=== PATIENT | male | born 1955 | race Caucasian/White ===

== ENCOUNTER 2020-09-03 15:51 | Emergency (ER) | payer BC, MEDICARE ==
[2020-09-03] MEDS ORDERED: SODIUM CHLORIDE 0.9% (FLUSH) 10 ML SYG IV PRN (16:03)
[2020-09-03 16:15] VITALS: TEMP 97.7
[2020-09-03] MEDS ORDERED: TETANUS,DIPHTHERIA,PERTUSSIS 1 EA SYG IM ONE (16:55)
--- NOTE | 2020-09-03 16:58 | CT ---
EXAM DESCRIPTION: Abdomen/Pelvis w/Contrast 09/03/2020 4:53 PM JOB DEVELOPER CLINICAL HISTORY: 64 years, Male, fall from ladder with LOC, chest/belly/back pain COMPARISON: None PROCEDURE: Contrast-enhanced images of the abdomen and pelvis were performed utilizing 2 mm slice thickness at 2 mm interval reconstruction from the lung bases to the ischial tuberosities after the administration of IV contrast. In addition multiplanar reformats in the coronal and sagittal plane were obtained and reviewed. An individualized dose optimization technique, Automated Exposure Control, was utilized for the performed procedure. FINDINGS: Evaluation of the chest will be given in separate report. The liver, gallbladder, pancreas, spleen and adrenal glands demonstrate to be unremarkable, no focal lesions are noted. There is no evidence for hepatic and/or splenic laceration. The kidneys demonstrate normal uptake of contrast media. No hydronephrosis and/or stones were identified. There is no evidence for renal injury Grossly the unopacified stomach, small bowel and large bowel demonstrate to be within normal limits. Fecal residue and underdistention within the large bowel limits the evaluation. There is no evidence for bowel dilatation and/or free air. The appendix is normal. The urinary bladder demonstrate to be unremarkable. The prostate gland is normal. The aorta demonstrate minimal atherosclerotic disease. There is no retroperitoneal lymphadenopathy. There is no evidence for ascites and/or significant abnormal fluid collections. There is no retroperitoneal hemorrhage. At the bone windows demonstrate subcutaneous air along the right posterior lower chest and a pneumothorax and pneumomediastinum within the visualized lung bases. IMPRESSION: NO EVIDENCE FOR ACUTE INTRALUMINAL PROCESS.. Electronically signed by: Marvin Tamez MD 09/03/2020 4:56 PM JOB DEVELOPER
[2020-09-03] MEDS ORDERED: HYDROmorphone HCL INJ 2 MG/ML VIAL ONE (17:00)
--- NOTE | 2020-09-03 17:00 | CT ---
CT BRAIN AND CERVICAL SPINE HISTORY: Trauma. COMPARISON: None. TECHNIQUE: CT scan of the brain and cervical spine was performed without IV contrast. This exam was performed according to our departmental dose-optimization program, which includes automated exposure control, adjustment of the mA and/or kV according to patient size and/or use of iterative reconstruction technique. FINDINGS: BRAIN: The ventricles, cisterns, and sulci are age-appropriate. No evidence of acute infarction, intracranial hemorrhage, extra-axial fluid collection, or midline shift. There is opacification of the bilateral maxillary and sphenoid sinuses and bilateral ethmoid air cells. No depressed skull fracture. Focal soft tissue swelling overlying the left frontal scalp. CERVICAL SPINE: No acute cervical fracture or prevertebral soft tissue swelling. There is straightening of the normal cervical lordosis, which may be due to cervical collar, muscle spasm, or patient positioning. There is multilevel degenerative disc disease as well as facet DJD throughout the cervical spine. There are also a few scattered disc bulges but without high-grade spinal canal stenosis identified. There is a large amount of subcutaneous air within the neck soft tissues. IMPRESSION: 1. No acute intracranial hemorrhage. 2. No acute fracture or subluxation of the cervical spine. 3. Large amount of subcutaneous air in the neck soft tissues with a small right apical pneumothorax; correlate with same-day chest CT scan. Electronically signed by: Boris Garnett MD 09/03/2020 4:58 PM GUM ROLLING MACHINE OPERATOR
[2020-09-03] MEDS ORDERED: HYDROmorphone HCL INJ 2 MG/ML VIAL IV ONE ×2 (17:02→17:28)
--- NOTE | 2020-09-03 17:12 | CT ---
EXAM: CT Chest With Intravenous Contrast CLINICAL HISTORY: The patient is 64 years old and is Male; fall from ladder with LOC, chest/belly/back pain TECHNIQUE: Axial computed tomography images of the chest with intravenous contrast. Sagittal and coronal reformatted images were created and reviewed. This CT exam was performed using one or more of the following dose reduction techniques: automated exposure control, adjustment of the mA and/or kV according to patient size, and/or use of iterative reconstruction technique. COMPARISON: No relevant prior studies available. FINDINGS: Lungs: Unremarkable. No mass. No consolidation. Pleural space: Right pneumothorax, approximately 25-30% volume. No significant effusion. Heart: Unremarkable. No cardiomegaly. No significant pericardial effusion. Mediastinum: Pneumomediastinum. Bones/joints: Acute fracture, proximal left humerus. No thoracic compression fracture visualized. Small superior sternal fracture to the left of midline. No sternoclavicular joint dislocation. Acute left third rib fracture. Nondisplaced left fifth rib fracture. Acute first through third rib fractures. Soft tissues: Soft tissue gas in the chest wall, right greater than left, extending into the base of the neck. Vasculature: Unremarkable. No thoracic aortic aneurysm. Lymph nodes: No pathologically enlarged lymph nodes. IMPRESSION: 1. Right pneumothorax, approximately 25-30% volume. 2. Pneumomediastinum. 3. Acute LEFT rib fractures, number 1, 3 and 5. Acute RIGHT first through third rib fractures. 4. Acute fracture, proximal left humerus. 5. Small acute superior sternal fracture, to the left of midline. 6. Soft tissue gas in the chest wall, right greater than left, extending into the base of the neck. THIS REPORT CONTAINS FINDINGS THAT MAY BE CRITICAL TO PATIENT CARE: The critical findings were verbally discussed via telephone conference with Dr. Javed 5:04 PM central time September 03, 2020. The results were acknowledged and understood. Electronically signed by: Charito Lopez MD 09/03/2020 5:10 PM [facility]
--- NOTE | 2020-09-03 17:20 | ED.PDOC ---
History of Present Illness - General Chief Complaint: Trauma Stated Complaint: Mid back pain, L abd pain, head lac/hematoma Time Seen by Provider: 09/03/20 16:03 Source: patient, RN notes reviewed, Vital Signs reviewed, EMS notes reviewed, family - Exam Limitations: no limitations - History of Present Illness Initial Comments: Patient is a 64-year-old white male who presents from home s/p fall from ladder. Patient has been up on the roof and was climbing down when the ladder slipped and he fell to the ground. Per EMS he fell approximately from a height of 4 foot and landed on his left face/head. Per EMS and the there was loss of consciousness and what appeared to be seizure-like activity that lasted for approximately 30 seconds. Patient presents with complaints of back pain, severe, constant, nonradiating, worse with movement, nothing makes it better. This occurred just prior to arrival. Occurred: just prior to arrival Severity: severe Pain Location: face, back Method of Injury: fall Improving Factors: nothing Worsening Factors: movement Loss of Consciousness: brief (seconds) Associated Symptoms (Fall): abdominal pain, chest pain, shortness of breath Allergies/Adverse Reactions: Allergies NO KNOWN ALLERGY Allergy (Verified 09/03/20 16:15) Review of Systems - Review of Systems Constitutional: States: no symptoms reported, see HPI. Denies: chills, fever, malaise, weakness EENTM: States: see HPI, blurred vision - left eye. Denies: eye pain, double vision, ear pain Respiratory: States: see HPI, short of breath. Denies: cough, stridor, wheezing Cardiology: States: chest pain - right sided. Denies: palpitations, syncope Gastrointestinal/Abdominal: States: no symptoms reported. Denies: abdominal pain, diarrhea, nausea, vomiting Genitourinary: States: no symptoms reported. Denies: dysuria, frequency Musculoskeletal: States: see HPI, back pain. Denies: neck pain Skin: States: see HPI, change in color - Pt with left periorbital bruising and swelling.. Denies: rash Neurological: States: see HPI, headache, seizure Endocrine: States: no symptoms reported. Denies: increased hunger, increased thirst, increased urine Hematologic/Lymphatic: States: no symptoms reported. Denies: blood clots, easy bleeding All other Systems: Reviewed and Negative Past Medical History (General) - Patient Medical History Hx Stroke: No Hx of COPD: No Hx Cardiac Disorders: No Hx Congestive Heart Failure: No Hx Hypertension: Yes Hx Thyroid Disease: Yes - Hypo Hx Diabetes: No Hx Cancer: No - Vaccination History Hx Influenza Vaccination: No Hx Pneumococcal Vaccination: No - Social History Hx Tobacco Use: No Hx Alcohol Use: No Hx Substance Use: No Hx Substance Use Treatment: No Hx Depression: No - Female History Patient is a Female of Child Bearing Age (10 -59 yrs old): No Patient : No Family Medical History - Family History Mother Family History: No Known Physical Exam - Physical Exam General Appearance: Alert, Anxious, Obvious distress, Well Developed, Well Hydrated, Well Nourished Head Injury: contusions, ecchymosis - periorbital on left., lacerations - left top of head Eye Exam: left other - Pt with left periorbital edema and bruise. Bilateral PERRL/EOMI ENT Exam: hearing grossly normal, no dental injury, other - no septal hematoma. Dried blood in left nare. Neck Exam: non-tender, normal alignment, other - pt in c collar. Cardiovascular/Respiratory: no M/R/G, normal peripheral pulses, no JVD, no respiratory distress, tachycardia, other - diminished BS on right with mild crepitus Gastrointestinal/Abdominal: normal bowel sounds, soft, no organomegaly, no pulsatile mass, distended Back Exam: no CVA tenderness, vertebral tenderness Extremity Exam: normal range of motion, tenderness - left upper arm. 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 - [place] Coma Score Best Eye Response ([place]): (4) open spontaneously Best Verbal Response ([place]): (5) oriented Best Motor Response ([place]): (6) obeys commands [place] Total: 15 Progress - Results/Orders Results/Orders: CT BRAIN AND CERVICAL SPINE HISTORY: Trauma. COMPARISON: None. TECHNIQUE: CT scan of the brain and cervical spine was performed without IV contrast. This exam was performed according to our departmental dose-optimization program, which includes automated exposure control, adjustment of the mA and/or kV according to patient size and/or use of iterative reconstruction technique. FINDINGS: BRAIN: The ventricles, cisterns, and sulci are age-appropriate. No evidence of acute infarction, intracranial hemorrhage, extra-axial fluid collection, or midline shift. There is opacification of the bilateral maxillary and sphenoid sinuses and bilateral ethmoid air cells. No depressed skull fracture. Focal soft tissue swelling overlying the left frontal scalp. CERVICAL SPINE: No acute cervical fracture or prevertebral soft tissue swelling. There is straightening of the normal cervical lordosis, which may be due to cervical collar, muscle spasm, or patient positioning. There is multilevel degenerative disc disease as well as facet DJD throughout the cervical spine. There are also a few scattered disc bulges but without high-grade spinal canal stenosis identified. There is a large amount of subcutaneous air within the neck soft tissues. IMPRESSION: 1. No acute intracranial hemorrhage. 2. No acute fracture or subluxation of the cervical spine. 3. Large amount of subcutaneous air in the neck soft tissues with a small right apical pneumothorax; correlate with same- day chest CT scan. Electronically signed by: Boris Garnett MD 09/03/2020 4:58 PM SQUARE DANCE CALLER EXAM: CT Chest With Intravenous Contrast CLINICAL HISTORY: The patient is 64 years old and is Male; fall from ladder with LOC, chest/belly/back pain TECHNIQUE: Axial computed tomography images of the chest with intravenous contrast. Sagittal and coronal reformatted images were created and reviewed. This CT exam was performed using one or more of the following dose reduction techniques: automated exposure control, adjustment of the mA and/or kV according to patient size, and/or use of iterative reconstruction technique. COMPARISON: No relevant prior studies available. FINDINGS: Lungs: Unremarkable. No mass. No consolidation. Pleural space: Right pneumothorax, approximately 25-30% volume. No significant effusion. Heart: Unremarkable. No cardiomegaly. No significant pericardial effusion. Mediastinum: Pneumomediastinum. Bones/joints: Acute fr acture, proximal left humerus. No thoracic compression fracture visualized. Small superior sternal fracture to the left of midline. No sternoclavicular joint dislocation. Acute left third rib fracture. Nondisplaced left fifth rib fracture. Acute first through third rib fractures. Soft tissues: Soft tissue gas in the chest wall, right greater than left, extending into the base of the neck. Vasculature: Unremarkable. No thoracic aortic aneurysm. Lymph nodes: No pathologically enlarged lymph nodes. IMPRESSION: 1. Right pneumothorax, approximately 25-30% volume. 2. Pneumomediastinum. 3. Acute LEFT rib fractures, number 1, 3 and 5. Acute RIGHT first through third rib fractures. 4. Acute fracture, proximal left humerus. 5. Small acute superior sternal fracture, to the left of midline. 6. Soft tissue gas in the chest wall, right greater than left, extending into the base of the neck. THIS REPORT CONTAINS FINDINGS THAT MAY BE CRITICAL TO PATIENT CARE: The critical findings were verbally discussed via telephone conference with Dr. Javed 5:04 PM central time September 03, 2020. The results were acknowledged and understood. Electronically signed by: Charito Lopez MD 09/03/2020 5:10 PM ADDENDUM #1 THIS REPORT CONTAINS FINDINGS THAT MAY BE CRITICAL TO PATIENT CARE: Called, telephoned, verbal report was given oral to Dr. Javed at 5:01 PM SQUARE DANCE CALLER on 09/03/2020. Electronically signed by: Marvin Tamez MD 09/03/2020 5:10 PM SQUARE DANCE CALLER ORIGINAL REPORT EXAM DESCRIPTION: Abdomen/Pelvis w/Contrast 09/03/2020 4:53 PM SQUARE DANCE CALLER CLINICAL HISTORY: 64 years, Male, fall from ladder with LOC, chest/belly/back pain COMPARISON: None PROCEDURE: Contrast-enhanced images of the abdomen and pelvis were performed utilizing 2 mm slice thickness at 2 mm interval reconstruction from the lung bases to the ischial tuberosities after the administration of IV contrast. In addition multiplanar reformats in the coronal and sagittal plane were obtained and reviewed. An individualized dose optimization technique, Automated Exposure Control, was utilized for the performed procedure. FINDINGS: Evaluation of the chest will be given in separate report. The liver, gallbladder, pancreas, spleen and adrenal glands demonstrate to be unremarkable, no focal lesions are noted. There is no evidence for hepatic and/or splenic laceration. The kidneys demonstrate normal uptake of contrast media. No hydronephrosis and/or stones were identified. There is no evidence for renal injury Grossly the unopacified stomach, small bowel and large bowel demonstrate to be within normal limits. Fecal residue and underdistention within the large bowel limits the evaluation. There is no evidence for bowel dilatation and/or free air. The appendix is normal. The urinary bladder demonstrate to be unremarkable. The prostate gland is normal. The aorta demonstrate minimal atherosclerotic disease. There is no retroperitoneal lymphadenopathy. There is no evidence for ascites and/or significant abnormal fluid collections. There is no retroperitoneal hemorrhage. At the bone windows demonstrate subcutaneous air along the right posterior lower chest and a pneumothorax and pneumomediastinum within the visualized lung bases. IMPRESSION: NO EVIDENCE FOR ACUTE INTRALUMINAL PROCESS.. Electronically signed by: Marvin Tamez MD 09/03/2020 4:56 PM SQUARE DANCE CALLER END ADDENDUM EXAM DESCRIPTION: Abdomen/Pelvis w/Contrast 09/03/2020 4:53 PM SQUARE DANCE CALLER CLINICAL HISTORY: 64 years, Male, fall from ladder with LOC, chest/belly/back pain COMPARISON: None PROCEDURE: Contrast-enhanced images of the abdomen and pelvis were performed utilizing 2 mm slice thickness at 2 mm interval reconstruction from the lung bases to the ischial tuberosities after the administration of IV contrast. In addition multiplanar reformats in the coronal and sagittal plane were obtained and reviewed. An individualized dose optimization technique, Automated Exposure Control, was utilized for the performed procedure. FINDINGS: Evaluation of the chest will be given in separate report. The liver, gallbladder, pancreas, spleen and adrenal glands demonstrate to be unremarkable, no focal lesions are noted. There is no evidence for hepatic and/or splenic laceration. The kidneys demonstrate normal uptake of contrast media. No hydronephrosis and/or stones were identified. There is no evidence for renal injury Grossly the unopacified stomach, small bowel and large bowel demonstrate to be within normal limits. Fecal residue and underdistention within the large bowel limits the evaluation. There is no evidence for bowel dilatation and/or free air. The appendix is normal. The urinary bladder demonstrate to be unremarkable. The prostate gland is normal. The aorta demonstrate minimal atherosclerotic disease. There is no retroperitoneal lymphadenopathy. There is no evidence for ascites and/or significant abnormal fluid collections. There is no retroperitoneal hemorrhage. At the bone windows demonstrate subcutaneous air along the right posterior lower chest and a pneumothorax and pneumomediastinum within the visualized lung bases. IMPRESSION: NO EVIDENCE FOR ACUTE INTRALUMINAL PROCESS.. Electronically signed by: Marvin Tamez MD 09/03/2020 4:56 PM SQUARE DANCE CALLER 09/03/20 16:03 Sodium Chloride 0.9% (Flush) [Saline Flush Syringe] 10 ml IV PRN PRN EKG Stat URINALYSIS Stat 09/03/20 16:04 Hold Metformin x 48Hrs [id number] 09/04/20 09:00 Pulse Ox Daily Laboratory Results - last 24 hr 09/03/20 09/03/20 09/03/20 16:11 16:11 16:11 WBC 11.0 H RBC 4.37 L Hgb 13.6 L Hct 40.0 L MCV 91.4 MCH 31.2 H MCHC 34.1 RDW 12.9 Plt Count 366 MPV 7.1 L Absolute Neuts (auto) 5.50 Absolute Lymphs (auto) 4.30 H Absolute Monos (auto) 0.90 H Absolute Eos (auto) 0.20 Absolute Basos (auto) 0.10 Neutrophils % 50.2 Lymphocytes % 38.7 Monocytes % 8.2 Eosinophils % 2.1 Basophils % 0.8 PT 10.0 INR 1.01 PTT (SP) 22.0 Sodium 137 Potassium 3.3 L Chloride 100 L Carbon Dioxide 22 Anion Gap 18.3 H BUN 9 Creatinine 0.95 BUN/Creatinine Ratio 9.5 L Random Glucose 112 H Serum Osmolality 273.3 L Calcium 8.9 Total Bilirubin 0.6 AST 41 ALT 36 Alkaline Phosphatase 47 Creatine Kinase 136 CK-MB (CK-2) 2.3 CK-MB (CK-2) % Not Reportable Troponin I < 0.02 Serum Total Protein 7.8 Albumin 4.2 Globulin 3.6 H Albumin/Globulin Ratio 1.2 Lipase Ethyl Alcohol 09/03/20 09/03/20 16:11 16:17 WBC RBC Hgb Hct MCV MCH MCHC RDW Plt Count MPV Absolute Neuts (auto) Absolute Lymphs (auto) Absolute Monos (auto) Absolute Eos (auto) Absolute Basos (auto) Neutrophils % Lymphocytes % Monocytes % Eosinophils % Basophils % PT INR PTT (SP) Sodium Potassium Chloride Carbon Dioxide Anion Gap BUN Creatinine BUN/Creatinine Ratio Random Glucose Serum Osmolality Calcium Total Bilirubin AST ALT Alkaline Phosphatase Creatine Kinase CK-MB (CK-2) CK-MB (CK-2) % Troponin I Serum Total Protein Albumin Globulin Albumin/Globulin Ratio Lipase 68 H Ethyl Alcohol < 5.10 Vital Signs 09/03/20 09/03/20 15:58 16:00 Temperature 97.7 F Pulse Rate [ 119 H 119 H Pulse ox] Respiratory 22 22 Rate Blood Pressure 120/92 [L arm] O2 Sat by Pulse 92 L Oximetry EKG performed on 03 September 2020 at 1703 hrs.: Sinus tachycardia to 118 bpm, normal axis deviation, no ST or T wave changes, otherwise normal EKG. No comparison EKG available at this time. - EKG/XRAY/CT CT Ordered: Yes Departure - Departure Clinical Impression: Pneumomediastinum, Pneumothorax on right Fall Qualifiers: Encounter type: initial encounter Qualified Code(s): W19.XXXA - Unspecified fall, initial encounter Ribs, multiple fractures Qualifiers: Encounter type: initial encounter Fracture type: closed Laterality: bilateral Qualified Code(s): S22.43XA - Multiple fractures of ribs, bilateral, initial encounter for closed fracture Humerus fracture Qualifiers: Encounter type: initial encounter Humerus Location: proximal Fracture type: closed Fracture alignment: nondisplaced Laterality: left Sternal fracture Qualifiers: Encounter type: initial encounter Sternal location: unspecified Fracture type: closed Qualified Code(s): S22.20XA - Unspecified fracture of sternum, initial encounter for closed fracture Time of Disposition: 17:36 Disposition: Transfer to Hospital Condition: Serious Departure Forms: ED Discharge - Pt. Copy, Patient Portal Self Enrollment Critical Care Note - Critical Care Note Total Time (mins): 60 Transfer to Outside Facility - Transfer Information Decision to Transfer Date: 09/03/20 Decision to Transfer Time: 16:45 Reason for Transfer: required specialist not available Accepting Provider:: Dr. Chakraborty Accepting Facility[facility]
[2020-09-03] MEDS ORDERED: ONDANSETRON INJ 4 MG/2 ML VIAL ONE (17:39)
[2020-09-03] MEDS ORDERED: ONDANSETRON INJ 4 MG/2 ML VIAL IV ONE (17:40)
[2020-09-03 17:59] VITALS: BP 140/96; O2SAT 96
== END 2020-09-03 18:00 | disposition short-term general hospital (02) ==
LOC: ER 15:51
DX: S22.43XA Multiple fractures of ribs, bilateral, initial encounter for closed fracture (principal); S42.202A Unspecified fracture of upper end of left humerus, initial encounter for closed fracture; S22.20XA Unspecified fracture of sternum, initial encounter for closed fracture; T79.7XXA Traumatic subcutaneous emphysema, initial encounter; S27.0XXA Traumatic pneumothorax, initial encounter; S06.0X1A Concussion with loss of consciousness of 30 minutes or less, initial encounter; S05.12XA Contusion of eyeball and orbital tissues, left eye, initial encounter; S09.90XA Unspecified injury of head, initial encounter; R00.0 Tachycardia, unspecified; E03.9 Hypothyroidism, unspecified; I10 Essential (primary) hypertension; W11.XXXA Fall on and from ladder, initial encounter; Y92.9 Unspecified place or not applicable
CPT/HCPCS: 36415; 70450; 71260; 72125; 74177; 80053; 80320; 82550; 82553; 83690; 84484; 85025; 85610; 85730; 90471; 90715; 93005; A4216; J1170; J2405